=== PATIENT | male | born 1980 | race Two or more races ===

== ENCOUNTER 2019-07-12 20:35 | Emergency (ER) | payer OTHER ==
[~2019-07-12] VITALS: Ht 162.6 cm; Wt 65.8 kg
[2019-07-12 21:02] VITALS: BP 122/81
== END 2019-07-12 21:55 | disposition left against medical advice (07) ==
LOC: ER 20:44
DX: H57.12 Ocular pain, left eye (principal); Z53.21 Procedure and treatment not carried out due to patient leaving prior to being seen by health care provider